=== PATIENT | male | born 1995 ===

== ENCOUNTER 2017-09-11 21:37 | Emergency (ER) | payer MEDICAID ==
[~2017-09-11] VITALS: Ht 177.8 cm; Wt 72.6 kg
[2017-09-11 21:45] VITALS: BP 137/94
[2017-09-11] MEDS ORDERED: SUBOXONE 4 MG-1 EACH SL (22:06)
[2017-09-11] MEDS ORDERED: QUETIAPINE FUM100 MG ORAL (22:06)
[2017-09-11 23:03] VITALS: BP 125/77
[2017-09-11] MEDS ORDERED: IBUPROFEN600 MG ORAL (23:23)
--- NOTE | 2017-09-11 23:23 | Emergency Room Report ---
History of Present Illness General Chief Complaint: Head, Face, Neck Trauma Source: Patient, EMS Present Illness HPI This is a 22-year-old male with history of heroin abuse currently in sober living for the last to 3 months. He presents with chief complaint of head laceration and injury. He said he became very angry over situation and banging his head against the door. Unfortunately he banged it against the edge and sustained a laceration to the frontal scalp. No loss of consciousness. Onset was acute and occurred just prior to arrival. Mild pain. No suicidal thoughts or homicidal thought. He said he felt better now. Allergies: Coded Allergies: No Known Allergies (Unverified , 09/11/17) Patient History Past Medical History: see triage record, old chart reviewed Past Surgical History: none Pertinent Family History: none Social History: Reports: drug use - history of heroin Immunizations: other Reviewed Nursing Documentation: PMH: Agreed; PSxH: Agreed Review of Systems Eye: Denies: eye pain, blurred vision ENT: Denies: ear pain, nose congestion, throat swelling Respiratory: Denies: cough, shortness of breath Cardiovascular: Denies: chest pain, palpitations Gastrointestinal: Denies: abdominal pain, diarrhea, nausea, vomiting Musculoskeletal: Denies: back pain, joint pain Skin: Denies: rash Neurological: Denies: headache, numbness Endocrine: Denies: increased thirst, increased urine Hematologic/Lymphatic: Denies: easy bruising All Other Systems: negative except mentioned in HPI Physical Exam Vital Signs Date Time Temp Pulse Resp B/P (MAP) Pulse Ox O2 Delivery O2 Flow Rate FiO2 09/11/17 21:33 132 20 137/94 100 Room Air 09/11/17 23:03 98.3 98.3 vitals normal Sp02 EP Interpretation: reviewed, normal General Appearance: well appearing, no apparent distress, alert Head: normocephalic, other - 5 cm vertical laceration to Mid frontal scalp. No foreign body. Eyes: bilateral eye PERRL, bilateral eye EOMI ENT: hearing grossly normal, normal pharynx Neck: full range of motion, supple, no meningismus Respiratory: chest non-tender, lungs clear, normal breath sounds Cardiovascular #1: regular rate, rhythm, no murmur Gastrointestinal: normal bowel sounds, non tender, no mass, no organomegaly, no bruit, non-distended Musculoskeletal: back normal, gait/station normal, normal range of motion Psychiatric: mood/affect normal Skin: warm/dry Procedures Laceration/Wound Repair Laceration/Wound Repair : Consent: Verbal Wound Location: head Wound's Depth, Shape: into muscle, linear Wound Length (cm): 5 Wound Explored: clean Irrigated w/ Saline (ccs): 500 Anesthesia: 1% Lidocaine Volume Anesthetic (ccs): 5 Wound Repaired With: queta Patient Tolerated: Well Complications: None Progress I placed 7 queta. Patient tolerated procedure w/o problem Medical Decision Making Diagnostic Impression: Primary Impression: Acute head injury Qualified Codes: S09.90XA - Unspecified injury of head, initial encounter Additional Impression: Scalp laceration Qualified Codes: S01.01XA - Laceration without foreign body of scalp, initial encounter ER Course Patient with head injury. No evidence of any bleeding or skull fracture. We' ll discharge home. CT/MRI/US Diagnostic Results CT/MRI/US Diagnostic Results : Imaging Test Ordered: CT head Impression negative per radiologist Last Vital Signs Date Time Temp Pulse Resp B/P (MAP) Pulse Ox O2 Delivery O2 Flow Rate FiO2 09/11/17 23:03 98.3 84 11 125/77 100 Room Air 98.3 Status: improved Disposition: HOME, SELF-CARE Condition: Stable Referrals: NOT CHOSEN [facility]/MD,REFERRING (PCP) Additional Instructions: May take Motrin for pain. [place] out in one week. You may come back here or see her doctor for this. Return if worse. ANA ACLAZAR M.D. Sep 11, 2017 23:23
[2017-09-11 23:28] VITALS: BP 125/77
--- NOTE | 2017-09-12 10:30 | Diagnostic Imaging Report ---
Indications: Altered mental status Technique: Spiral acquisitions obtained through the brain. Angled axial and coronal 5 x 5 mm slices were reconstructed. Total dose length product 378 mGycm. CTDI vol(s) 22 mGy. Dose reduction achieved using automated exposure control Comparison: None. Findings: No acute intracranial hemorrhage or edema. No mass effect nor midline shift. Normal phelps-white differentiation. Normal-sized ventricles and extra-axial CSF spaces. Intact calvarium. Visualized orbits and sinuses are unremarkable there is evidence of minimal midline frontal scalp soft tissue injury Impression: Negative for acute intracranial bleed or mass effect Evidence of frontal scalp soft tissue injury The CT scanner at [facility] is accredited by the [employer] and the scans are performed using protocols designed to limit radiation exposure to as low as reasonably achievable to attain images of sufficient resolution adequate for diagnostic evaluation.
== END 2017-09-11 23:30 | disposition home or self-care (01) ==
LOC: EDBD 21:37 → EMR 22:20
DX: S01.01XA Laceration without foreign body of scalp, initial encounter (principal); F11.11 Opioid abuse, in remission; W22.09XA Striking against other stationary object, initial encounter; Y92.199 Unspecified place in other specified residential institution as the place of occurrence of the external cause
CPT/HCPCS: 12002; 70450; 99284; Z7502